=== PATIENT | male | born 1960 | race Caucasian/White ===

== ENCOUNTER → 2018-07-28 | Outpatient (CLI) | payer OTHER | END | disposition home or self-care (01) | LOC: HKI 14:36 | DX: M25.561 Pain in right knee (principal) | CPT/HCPCS: 73564 ==

== ENCOUNTER → 2018-08-13 | Outpatient (CLI) | payer OTHER | END | disposition home or self-care (01) | LOC: HKI 14:39 | DX: M25.561 Pain in right knee (principal) | CPT/HCPCS: 20610; 72100; 73502 ==